=== PATIENT | male | born 1975 | race Caucasian/White ===

== ENCOUNTER 2016-12-15 13:40 | Day surgery (SDC) | payer OTHER ==
[2016-12-15] VITALS (7 sets, daily range): BP systolic 114–142; BP diastolic 73–90; PULSE 68–98; RESP 14–22; O2SAT 95–98
[~2016-12-15] VITALS: Ht 170.2 cm; Wt 73.6 kg
--- NOTE | 2016-12-15 10:04 | PCM.HPANE ---
Patient Data Surgeon Admitting Provider: Attending Provider:Jeanne Sims MD Primary Care Physician:Louise Other Provider: Reason for Visit Groin Mass Ht/WT & BMI Height (Feet): 5 Height (Inches): 6 Weight (Kilograms): 75.93 Body Mass Index 26.00 Allergies Coded Allergies: Penicillins (Verified Allergy, Unknown, 12/15/16) Past Anesthesia History Anesthesia History: Denies:: Anesthesia Reactions MRSA MRSA: No Medications Hypertension Medication: No Home Meds Incl Beta Micki: No No Active Prescriptions or Reported Meds History History of ENT Problems?: No Hx of Heart Problems?: No Cardiovascular History: Positive for:: Hypertension (NON MEDICATED) Hx of Respiratory Problem?: No Hx Neurologic Problems?: No Hx of GI Problems?: No Hx of Problems?: No Male Hx: Denies:: Prostate Problems Scrotal Mass Testicular Surgery Skin History: Denies:: History Skin Disorders? Pressure Ulcers Hx Musculoskeletal Problems?: Yes Musculoskeletal History: Positive for:: Musculoskeletal Trauma (L KNEE PAIN, L KNEE SPRAIN, ACROMLOCLAVICULAR SPRAIN) Hx of Psycho/Social Problems?: No Hx Surgeries?: No Hx Any Other Health Problems?: No Other History: Denies:: Cancer Hx Alcohol Use: Yes (4-5 BEERS A DAY)Hx Substance Use: Yes (INFREQUENT MARIJUANA USE.)Have You Smoked inLast 12 mo: Yes Stop/Bang S-Snoring: Do You Snore Loudly: No T-Tired: feel tired, fatigued: No O-Obsered: Observed not breath: No P-Blood Pressure: treated: No B- Body Mass Index > 35 kg/m2: No A- Age over 50: No N- Neck Large Circumference: No G- Gender Male: Yes DEMOND Total Score: 1 DEMOND Risk Assessment: Low Risk, <3 Yes Risk Assessment Category Category 1A: Patient has history of documented sleep apnea, and HAS NOT received any narcotic, sedative or anesthesia administration during this stay. Category 1B: Patient has history of documented sleep apnea, and HAS received any narcotic , sedative or anesthesia administration during this stay Category 2: Patient has SUSPECTED Obstructive Sleep Apnea, and HAS received any narcotic , sedative or anesthesia administration during this stay. Category 3: Patient has SUSPECTED Obstructive Sleep Apnea and HAS NOT received narcotic, sedative or anesthesia administration during this stay. Category 4: Outpatient in Procedural Areas with known sleep apnea or who screen positive for High Risk via the STOP/BANG questionnaire. Exam Exam General Appearance: Alert, Oriented X3, Cooperative, No Acute Distress HEENT/AIRWAY: MP 1 Lungs: Normal Air Movement Heart: Exam Unremarkable Plan Impression Patient chart reviewed, patient interviewed and anesthestic plan with risks, benefits, and alternatives discussed, and informed consent obtained. ASA Physical Status: ASA2 Mod Systemic Disease Anesthetic Plan: GA Bene/Risks/Altern/Consents: Yes HP Complete Prior to Induction: Yes Farooq Hicks MD Dec 15, 2016 10:04
[2016-12-15] MEDS ORDERED: Propofol 10,000 mCg/mL 20 mL Inj ONE (13:41)
[2016-12-15] MEDS ORDERED: fentaNYL-PF 50 mCg/mL 2 mL Inj ONE (13:41)
[2016-12-15] MEDS ORDERED: Ondansetron 2 mg/mL 2 mL Inj ONE (13:41)
[2016-12-15] MEDS ORDERED: Dexamethasone 4 mg/mL Inj ONE (13:41)
[2016-12-15] MEDS: Lactated Ringer's 1,000 ML IV SCH ×2 (13:50→15:34)
[2016-12-15] MEDS ORDERED: CeFAZolin 2 Gm/50 mL D5W Duplex Bag IV ONE (14:59)
[2016-12-15] MEDS ORDERED: Ondansetron 2 mg/mL 2 mL Inj IVPUSH PRN (15:20)
[2016-12-15] MEDS ORDERED: Lactated Ringer's 500 ML IV PRN (15:20)
[2016-12-15] MEDS ORDERED: Dexamethasone 4 mg/mL Inj IVPUSH PRN (15:20)
[2016-12-15] MEDS ORDERED: Phenylephrine 10,000 mCg/mL Inj IVPUSH PRN (15:20)
[2016-12-15] MEDS ORDERED: fentaNYL-PF 50 mCg/mL 2 mL Inj IVPUSH PRN (15:20)
[2016-12-15] MEDS ORDERED: Lactated Ringer's 1,000 ML IV SCH (15:20)
[2016-12-15] MEDS ORDERED: HYDROmorphone 1 mg/mL Inj IVPUSH PRN (15:20)
[2016-12-15] MEDS ORDERED: MetoCLOpramide 5 mg/mL 2 mL Inj IVPUSH PRN (15:20)
[2016-12-15] MEDS ORDERED: EPHEDrine Sulfate 50 mg/mL Inj IVPUSH PRN (15:20)
[2016-12-15] MEDS ORDERED: Bupivacaine-MPF 0.5% W/EPI 30 mL Inj INFILTRATE ONE (15:52)
[2016-12-15] MEDS ORDERED: oxyCODONE-Acetamin 5-325 mg Tablet PO PRN (15:55)
--- NOTE | 2016-12-15 16:13 | PCM.ANEP1 ---
Post Anesthesia Phase 1 PACU Phase 1 Assessment Vital Signs Vital Signs Date Time Temp Pulse Resp B/P Pulse Ox O2 Delivery O2 Flow Rate FiO2 12/15/16 16:01 36.4 98 18 142/90 96 Room Air 12/15/16 13:56 36.3 68 16 142/89 95 Room Air Anesthetic Administered: GA Level of Alertness: Awake, talking MENDOZA's with Equal Strength: Yes Pain: No Nausea or Vomiting: No Oxygen Delivery: Room Air Lungs: Normal Air Movement Farooq Hicks MD Dec 15, 2016 16:13
--- NOTE | 2016-12-15 16:13 | PCM.ANEP2 ---
Post Anesthesia Evaluation ASA/CMS Post Anesthesia VS in Patient's Normal Range?: Yes Resp Stable; Airway Patent?: Yes CV Function & Hydration Stable: Yes Mental Status Recovered?: Yes Pain control Satisfactory?: Yes N/V Control Satisfactory?: Yes Farooq Hicks MD Dec 15, 2016 16:13
--- NOTE | 2016-12-15 18:31 | OP ---
[address] [address] OPERATIVE REPORT PATIENT: JOSÉ LUIS GALLAGHER : 1975 MR#: [id number] ADMIT: 12/15/2016 JOB ID: [id number] DATE OF SURGERY: 12/15/2016 PREOPERATIVE DIAGNOSIS(ES): Left groin spindle cell mass. POSTOPERATIVE DIAGNOSIS(ES): Left groin spindle cell mass. PROCEDURE PERFORMED: Excision of left groin mass, 3.5 x 2 x 1.5 cm. SURGEON: Jeanne Sims MD. ASSISTANTS: Osvaldo Nicole PA-C; Dixie Wen MS3. HISTORY OF PRESENT ILLNESS: This is a 41-year-old man who presented with a left groin mass that had been slowly increasing in size over the course of several years. The rate of growth increased in the fall of 2015, and he was evaluated in my clinic in September 2016. He did not desire surgery. Therefore ultrasound-guided FNA was ordered, which demonstrated a spindle cell neoplasm but was paucicellular and therefore could not be differentiated. It continued to increase in size slowly. For this reason, and based on the pathology, excision was recommended. FINDINGS: Firm subcutaneous mass located in the left groin. After excision, there was trace amount of firm tissue at the inferior border, and this was subsequently excised as well. There was no firm nodular tissue remaining at the end of the case. DESCRIPTION OF PROCEDURE: The patient was brought to the operating room and placed in supine position. General anesthesia was induced. A warming blanket and SCDs were placed. He was repositioned in the frogleg position. The operative field was prepped and draped in sterile fashion. A pause was performed to confirm the correct patient, procedure, site, and side. The mass was longest in vertical dimension, and therefore a vertical incision in the inferior groin overlying the mass was performed in elliptical fashion in order to completely excise it. The specimen was 3.5 x 2 x 1.5 cm. After excision, there was a small amount of firm tissue at the inferior margin, and this was excised in two separate specimens to confirm that there was no firm or nodular tissue remaining. The specimen itself was mobile and located in the subcutaneous tissues, and appeared to be involving dermis as well. There were no lymph nodes identified and it was superficial enough that none of the other structures of the groin were visualized such as femoral vessels or spermatic cord. The subcutaneous tissues were closed with interrupted 3-0 Vicryl stitch and skin was closed with a 4-0 Monocryl stitch. Dermabond was applied. The patient was awakened from general anesthesia and taken to postoperative care unit in good condition. SPECIMENS: 1. Left groin subcutaneous mass, 3.5 cm. 2. Inferior margin, 1 cm. 3. Inferior margin #2 0.5 cm. COMPLICATIONS: None. ESTIMATED BLOOD LOSS: None. MTDD
--- NOTE | 2016-12-21 13:18 | PATH ---
SURGICAL PATHOLOGY Attending Physician:Jeanne Sims MD CASE STATUS: Signed Out PATIENT NAME: JOSÉ LUIS GALLAGHER PID: [id number] : 1975 DATE COLLECTED:12/15/2016 22:44 SPECIMEN: 1: Soft Tissue Mass, Biopsy 2: Soft Tissue Mass, Biopsy 3: Soft Tissue Mass, Biopsy CLINICAL HISTORY: SPINDLE CELL NEOPLASM 1. LEFT GROIN SUBCUTANEOUS MASS 2. LEFT GROIN SUBCUTANEOUS MASS - INFERIOR MARGIN IN #1 3. LEFT GROIN SUBCUTANEOUS MASS - INFERIOR MARGIN IN #2 FINAL DIAGNOSIS: 1. 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 Material to be forwarded to the [facility] for their expert opinion. Tumor extends to all of the specimen margins. 2. Left Groin Subcutaneous Mass Inferior Margin #1: Positive for tumor. 3. Left Groin Subcutaneous Mass Inferior Margin #2: Negative for tumor. ICD10 C44.709 NOTE: This material is reviewed with Dr. Talha Alexander who agrees with the diagnosis. The results of this evaluation are telephoned to the voice mail of Dr. Jeanne Sims on 12/21/2016. This material is forwarded to the [facility] for their expert opinion. An addendum report will be issued at the conclusion of those studies. GROSS DESCRIPTION: The specimen is received in three formalin filled containers labeled with the patient's name. 1). The specimen is sublabeled "left groin subcutaneous mass" and consists of a downing-ruby rough portion of tissue which measures 3.0 x 1.6 x 1.6 CM. The surgical margin is inked blue. The specimen is serially sectioned into 6 pieces and entirely submitted cassettes 1A, 1B, 1C. 2). The specimen is sublabeled "inferior margin #1 left groin subcutaneous mass" and consists of a 1.5 x 0.6 x 0.6 CM yellow to pink-downing friable portion of tissue. The specimen is inked blue. The specimen is sectioned into 4 pieces and entirely submitted in cassette 2A. 3). The specimen is sublabeled "inferior margin #2 left groin subcutaneous mass" and consists of a 0.6 x 0.6 x 0.3 CM portion of soft tissue. The specimen is inked blue. The specimen is trisected and totally submitted in cassette 3A. 12/15/2016 [facility] MICRO DESCRIPTION: Sections from part 1 are of a subcutaneous mass stated to be from the region of the left groin. This is a spindle cell tumor which involves the dermis and extends into the subcutaneous tissue and involves all of the specimen margins. The spindle cells have a distinct storiform growth pattern. The cells are not atypical. Mitotic figures are not noted and there is no evidence of tumor necrosis. Immunohistochemistry is performed in an attempt to better identify this spindle cell of origin. The results indicate that the tumor cells are positive for CD34 while being negative for S100, smooth muscle actin, CD56 and HMB45. 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 Because the lesion is quite large and extends to all the margins, the material will be forwarded to the [facility] for their expert opinion. Sections from part 2 are of the left groin subcutaneous mass inferior margin #1. This material is positive for the same tumor described in the above paragraph. Sections from the left groin subcutaneous mass inferior margin #2. This material is negative for tumor. ICD-9 CODES: CPT CODES: 1: 34747, 04220, 40919, 13069, 03695, 09129 2: 47028 3: 17606 PROCEDURE/ADDENDA: Addendum SPI Addendum Diagnosis Slides Reviewed at [facility] Pathology, by Dr. Jacobo Alcala 1). 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 --Specimen size given as 3.0 x 1.6 x 1.6, per outside report, with tumor involving majority of tissue on slides. --Sarcoma involves multiple peripheral and deep margins. --See Comment. 2). Left groin subcutaneous mass, inferior margin #1: --Dermatofibrosarcoma protuberans. 3). Left groin subcutaneous mass, inferior margin #2: --Adipose tissue, negative for sarcoma. COMMENT: Histologic sections show a monotonous spindle cell proliferation with dermal and subcutaneous tissue with sheet-like, storiform, and occasional short fascicular patterns. The neoplastic cells entrap areas of fat mainly at the periphery of the specimen. The provided outside immunohistochemical stains performed on part 1 demonstrate that the neoplastic cells are diffusely positive for CD34 and are negative for CD56, SMA, HMB 45 and S100. 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 Multiple inked peripheral and deep margins are involved by neoplasm in the main specimen (part 1) as well as in part 2 designated "left groin subcutaneous mass, inferior margin #1". There is no overt evidence of a more aggressive neoplasm such as so called fibrosarcomatous transformation in the submitted material. Addendum Comment Please see [facility] report [id number] for complete details. Electronically Signed Out Cole Hines MD Electronically Signed Out Cole Hines MD [facility] Pathology [facility] [address], [place] [address] Technical component performed at [facility], [address], [place], [address]
[2017-01-06] MEDS ORDERED: NO ACTIVE MEDS (12:49)
== END 2016-12-15 23:59 | disposition home or self-care (01) ==
LOC: SAS 13:40
PROVIDERS: ATTEND Surgery
DX: D17.1 Benign lipomatous neoplasm of skin and subcutaneous tissue of trunk (principal); F17.210 Nicotine dependence, cigarettes, uncomplicated
CPT/HCPCS: 11406; J1100; J2250; J2405; J7120